=== PATIENT | male | born 1990 | race Native Hawaiian/Other Pacific Islander ===

== ENCOUNTER 2022-03-02 13:14 | Outpatient (REF) | payer OTHER, SELFPAY ==
[2022-03-02 18:32] LABS: Fentanyl, urine POSITIVE (Not Detect)
== END 2022-03-02 13:15 | disposition home or self-care (01) ==
LOC: HO.LNP 13:14
PROVIDERS: Visit Provider Internal Medicine
DX: F11.90 Opioid use, unspecified, uncomplicated (principal); Z51.81 Encounter for therapeutic drug level monitoring
CPT/HCPCS: 80305; 80307

== ENCOUNTER 2023-01-25 08:35 | Outpatient (REF) | payer OTHER, SELFPAY ==
[2023-01-25 08:48] LABS: MANUAL DIFF FLAG NO
[2023-01-25 09:06] LABS: Basophils Percent Auto 0.3 % (0-2); Eosinophils Absolute Auto 0.5 X10*3/uL (0.0-0.4); Eosinophils Percent Auto 6.9 % (0-4); Hematocrit 40.8 % (42.0-52.0); Hemoglobin 13.6 g/dl (14.0-18.0); Imm Gran Abs Auto 0.05 X10*3/uL (0.00-0.03); Imm Gran Pct Auto 0.7 % (0.0-0.4); Lymphocytes Absolute Auto 2.2 X10*3/uL (1.2-4.9); Lymphocytes Percent Auto 31.1 % (20-40); Mean Corpuscular HGB Conc 33.3 g/dl (31.0-36.0); Mean Corpuscular Hemoglobin 27.3 pg (27.0-33.0); Mean Corpuscular Volume 81.9 fL (80.0-98.0); Mean Platelet Volume 9.5 fL (9.4-12.4); Monocytes Absolute Auto 0.6 X10*3/uL (0.1-1.2); Monocytes Percent Auto 8.6 % (2-11); Neutrophils Absolute Auto 3.7 x10*3/uL (2.0-8.3); Neutrophils Percent Auto 52.4 % (45-73); Platelet Count 254 X10*3/uL (160-400); Red Blood Count 4.98 X10*6/uL (4.60-5.80); Red Cell Distribution Width 12.2 % (11.0-16.0)
[2023-01-25 09:48] LABS: Alanine Aminotransferase 85 U/L (0-40); Alkaline Phosphatase 81 U/L (39-117); Anion Gap 13 (12-20); Aspartate Amino Transferase 31 U/L (5-37); Bilirubin Total 0.4 mg/dL (0.0-1.0); Blood Urea Nitrogen 14 mg/dL (9-16); Calcium 9.6 mg/dL (8.4-10.2); Carbon Dioxide 28 mmol/L (22-29); Chloride 102 mmol/L (96-108); Cholesterol 210 mg/dL; Estimated Glomerular Filt Rate > 60; Glucose Fasting 95 mg/dL (60-99); HDL Cholesterol 44 mg/dL; LDL Cholesterol Calculated 104 mg/dl; Potassium 4.7 mmol/L (3.3-5.1); Sodium 138 mmol/L (135-145); Total Protein 7.2 g/dL (6.5-8.0); Triglycerides 313 mg/dL
[2023-01-25 10:06] LABS: Thyroid Stimulating Hormone 2.17 uIU/mL (0.32-4.0)
[2023-01-31 13:57] LABS: Testosterone, Free 22.7 pg/mL (35.0-155.0); Testosterone, Total 159 ng/dL (250-1100)
== END 2023-01-25 08:36 | disposition home or self-care (01) ==
LOC: HO.LAB 08:35
PROVIDERS: PCP Internal Medicine; Visit Provider Internal Medicine
DX: E03.9 Hypothyroidism, unspecified (principal); N28.9 Disorder of kidney and ureter, unspecified; R68.82 Decreased libido; E78.5 Hyperlipidemia, unspecified; D64.9 Anemia, unspecified
CPT/HCPCS: 36415; 80053; 80061; 84402; 84403; 84443; 85025

== ENCOUNTER 2023-12-23 07:37 | Emergency (ER) | payer OTHER, SELFPAY ==
--- NOTE | 2023-12-23 | ECG_ITS ---
Test Reason : diff breathing Blood Pressure : / mmHG Vent. Rate : 073 BPM Atrial Rate : 073 BPM P-R Int : 178 ms QRS Dur : 096 ms QT Int : 406 ms P-R-T Axes : 078 085 052 degrees QTc Int : 447 ms Normal sinus rhythm Possible Left atrial enlargement Borderline ECG When compared with ECG of 23-FEB-2006 23:09, left atrial enlargement noted Referred By: Generic ED Physician Electronically Signed By:KIKI SAXENA
--- NOTE | ~2023-12-23 | XR_ITS ---
EXAMINATION: XR CHEST CLINICAL INFORMATION: Shortness of breath and cough COMPARISON: CT chest 04/06/2015 TECHNIQUE: 2 views of the chest were obtained. FINDINGS: No significant abnormality is noted involving the heart, lungs, mediastinum, bony thorax or soft tissues. XR/XR chest 2V IMPRESSION: Unremarkable examination.
[2023-12-23 07:39] VITALS: BP 133/88; PULSE 77; RESP 22; TEMP 36.6; O2SAT 95; BMI 34.6
[2023-12-23 08:24] LABS: MANUAL DIFF FLAG NO
[2023-12-23 08:29] LABS: Basophils Percent Auto 0.2 % (0-2); Eosinophils Absolute Auto 1.2 X10*3/uL (0.0-0.4); Eosinophils Percent Auto 10.3 % (0-4); Imm Gran Abs Auto 0.05 X10*3/uL (0.00-0.03); Imm Gran Pct Auto 0.4 % (0.0-0.4); Lymphocytes Absolute Auto 2.3 X10*3/uL (1.2-4.9); Mean Corpuscular HGB Conc 32.7 g/dl (31.0-36.0); Mean Corpuscular Hemoglobin 26.6 pg (27.0-33.0); Mean Corpuscular Volume 81.4 fL (80.0-98.0); Mean Platelet Volume 10.2 fL (9.4-12.4); Monocytes Absolute Auto 0.8 X10*3/uL (0.1-1.2); Monocytes Percent Auto 6.5 % (2-11); Neutrophils Absolute Auto 7.5 x10*3/uL (2.0-8.3); Neutrophils Percent Auto 63.6 % (45-73); Platelet Count 258 X10*3/uL (160-400); Red Blood Count 6.39 X10*6/uL (4.60-5.80); Red Cell Distribution Width 15.3 % (11.0-16.0); White Blood Count 11.8 X10*3/uL (4.8-10.8)
--- NOTE | 2023-12-23 08:33 | ED_ITS ---
HPI - URI/Sore Throat General Chief Complaint: Upper Respiratory Symptoms Stated Complaint: diff breathing cough Time Seen by Provider: 12/23/23 08:23 Source: patient Mode of arrival: ambulatory Limitations: no limitations History of Present Illness HPI Narrative: 33 y/o male presenting to the ED for evaluation of shortness of breath for 1 day and productive cough for 1 week. 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 After installing dryer, he felt extremely short of breath, wheezy, and able to complete a sentence due to inability to catch his breath. Denies history of asthma. He had a panic attack last night because he was unable to breathe fully. After finishing his shift this morning he came to the ED. Denies any fevers, abdominal pain, nausea, vomiting, diarrhea. Denies pain with inspiration. Smoker: reports frequent vaping Sick contacts: 2 children recently diagnosed with strep throat. MD elicited complaint: cough and sore throat Onset (ago): day(s) Consistency: constant Severity: severe Able to tolerate fluids by mouth: Yes Exacerbating factors: exertion and speaking Relieving factors: rest Context: sick contacts Associated symptoms: shortness of breath Treatments prior to arrival: none Related Data Previous Rx's ?Medication ?Instructions ?Recorded albuterol sulfate 90 mcg/actuation 1 inh inhalation QID PRN shortness 12/23/23 aerosol inhaler of breath or wheezing 5 days #6.7 grams inhalational spacing device (David #1 ea 12/23/23 Aerosol [place] Enhancer spacer) penicillin V potassium 500 mg 500 mg PO TID strep #10 tabs 12/23/23 tablet prednisone 20 mg tablet 50 mg (2.5 x 20 mg) PO DAILY 12/23/23 wheezing 5 days #13 tabs Allergies Allergy/AdvReac Type Severity Reaction Status Date / Time bee pollen [BEE STINGS] Allergy Unknown SWELLING Verified 12/23/23 07:41 Review of Systems 2 Review of Systems: Yes all other systems are reviewed and are negative [facility] Social History Social History Housing: House Patient Tobacco Use Status: Tobacco use Unknown e-Cigarette/Vaping Use: Currently Using Second Hand Smoke Exposure: No Advance Directives: No Advance Directives Information Provided: Yes service: No Current occupational status: employed Cognitive needs: No Hearing needs: No Vision needs: No Physical Exam 2 Vital Signs: Vital Signs: Last Vital Signs Temp 98.1 F 12/23/23 11:56 Pulse 94 12/23/23 11:56 Resp 20 12/23/23 11:56 BP 132/92 H 12/23/23 11:56 Pulse Ox 94 12/23/23 11:56 O2 Del Method Room Air 12/23/23 11:56 BMI result Body Mass Index 34.6 Appearance: Alert. Oriented X3. No acute distress. ENT: erythematous oropharynx with mucus. No tonsillar swelling or exudate. Neck: Normal inspection. Neck supple. CVS: Normal heart rate and rhythm. Pulses normal. Respiratory: Unable to speak in complete sentence. Diffuse inspiratory and expiratory wheezing. Equal breath sounds. Abdomen: Soft and nontender. Skin: Skin warm and dry. Normal skin color. Normal skin turgor. No rashes. Extremities: No lower extremity edema. No joint swelling. Neuro/psych: Oriented X 3. Nonfocal Course Reevaluation(s) Reevaluation #1: Patient reports that he is feeling improved, able to speak in complete sentences. Reports improvement from initial SOB 810 to now 10. Diffuse wheezing on inspiration and expiration still present diffusely. Time: 11:19 Medications Administered Discontinued Medications Generic Name Dose Route Start Last Admin Trade Name Freq PRN Reason Stop Dose Admin Albuterol Sulfate 2.5 mg/ 0 mg 12/23/23 08:49 12/23/23 08:53 Albuterol/Ipratropium 3 ml INHALE 12/23/23 08:50 5 dose ONCE ONE Administration Prednisone 50 mg 12/23/23 08:33 12/23/23 08:54 Prednisone 10 Mg Tablet PO 12/23/23 08:34 50 mg ONCE ONE Administration Medical Decision Making Medical Decision Making MDM Narrative: 33 y/o male presenting to the ED for evaluation of shortness of breath for 1 day and productive cough for 1 week. On exam, he is unable to speak in complete sentences and has diffuse inspiratory and expiratory wheezing on auscultation. Ordered CBC and BMP, unremarkable. Viral panel is negative. Group A strep swab positive. Patient's presentation most likely due to streptococcal pharyngitis. Administered duoneb and PO prednisone which patient reports mild relief. On exam, patient is still diffusely wheezing, both on inspiration and expiration. Will repeat with second duoneb. Patient reports frequent vaping, respiratory symptoms are likely exacerbated due to this. After 2nd neb patient was feeling much better. aeration improved although continued to be slightly wheezy. saturating well. he feels well enough for discharge - will send home with prednisone, albuterol neb, abx for strep given strict return precautions. Differential Diagnosis Differential Diagnoses: The differential diagnosis associated with the presentation includes streptococus pharyngitis, pneumonia, viral URI, COVID, flu, bronchitis, pneumothorax, acute asthma exacerbation Admission/Observation Consideration of admission/observation: Escalation of care including admission/observation considered required multiple nebs but overall improved Lab Data MDM Lab Attestation statement: I reviewed the patient's lab results. Elevated WBC likely due to infection with strep pyogenes 12/23/23 08:11 12/23/23 08:11 Labs: Lab Results 12/23/23 Range/Units 08:11 WBC 11.8 H (4.8-10.8) X10*3/uL RBC 6.39 H D (4.60-5.80) X10*6/uL Hgb 17.0 D (14.0-18.0) g/dl Hct 52.0 D (42.0-52.0) % MCV 81.4 (80.0-98.0) fL MCH 26.6 L (27.0-33.0) pg MCHC 32.7 (31.0-36.0) g/dl RDW 15.3 (11.0-16.0) % Plt Count 258 (160-400) X10*3/uL MPV 10.2 (9.4-12.4) fL Immature Gran % (Auto) 0.4 (0.0-0.4) % Neut % (Auto) 63.6 (45-73) % Lymph % (Auto) 19.0 L (20-40) % [facility] % (Auto) 6.5 (2-11) % Eos % (Auto) 10.3 H (0-4) % Baso % (Auto) 0.2 (0-2) % Lymph # (Auto) 2.3 (1.2-4.9) X10*3/uL [facility] # (Auto) 0.8 (0.1-1.2) X10*3/uL Eos # (Auto) 1.2 H (0.0-0.4) X10*3/uL Baso # (Auto) 0.0 (0.0-0.2) X10*3/uL Abs Immat Gran (auto) 0.05 H (0.00-0.03) X10*3/uL Absolute Neuts (auto) 7.5 (2.0-8.3) x10*3/uL Absolute Nucleated RBC 0.000 (0.0-0.012) X10*3/uL Nucleated RBC % (auto) 0.0 (0.0-0.2) /100WBC Sodium 139 (135-145) mmol/L Potassium 4.4 (3.3-5.1) mmol/L Chloride 103 (96-108) mmol/L Carbon Dioxide 30 H (22-29) mmol/L Anion Gap 10 L (12-20) BUN 12 (9-16) mg/dL Creatinine 0.94 (0.5-1.4) mg/dL Estim Creat Clear Calc 145.2 Estimated GFR > 60 Random Glucose 105 (60-115) mg/dL Calcium 9.6 (8.4-10.2) mg/dL Magnesium 1.8 (1.6-2.6) mg/dL Total Bilirubin 0.9 (0.0-1.0) mg/dL AST 33 (5-37) U/L ALT 64 H (0-40) U/L Alkaline Phosphatase 81 (39-117) U/L Total Protein 8.1 H (6.5-8.0) g/dL Albumin 4.4 (3.5-5.0) g/dL Influenza Type A (PCR) NEGATIVE (Negative) Influenza Type B (PCR) NEGATIVE (Negative) RSV RNA Qual (PCR) NEGATIVE (Negative) SARS-CoV-2 RNA (RT-PCR) NEGATIVE (Negative) S. pyogenes GrpA ED Positive A (Negative) Independent Interpretation I performed an independent interpretation of an: EKG and Plain X-Ray Interpretation: ECG: normal sinus rhythm with ventricular rate of 73 bpm, with possible left atrial enlargement. No ST elevations or depressions. X-RAY: unremarkable with no infiltrates, opacities, or significant abnormalities Radiology Impression Discussion of test interpretation with radiology: I have reviewed the radiologist's reading. Radiologist Impression: EXAMINATION: XR CHEST CLINICAL INFORMATION: Shortness of breath and cough COMPARISON: CT chest 04/06/2015 TECHNIQUE: 2 views of the chest were obtained. FINDINGS: No significant abnormality is noted involving the heart, lungs, mediastinum, bony thorax or soft tissues. XR/XR chest 2V IMPRESSION: Unremarkable examination. External Record Review External record reviewed: Prior outpatient labs and Prior outpatient radiology Prescription Management I considered prescription management with: Antibiotic Chronic Conditions Patient?s care impacted by: Other (vaping) Critical Care Time Critical Care Time Critical Care Time: Yes Total Critical Care Time: 48 Attestation: I have personally provided critical care time exclusive of time spent on separately billable procedures. Time includes review of lab data, radiology results, discussion with consultants, and monitoring for potential decompensation. Intervention performed as documented. Discharge Plan Discharge Clinical Impression: Strep pharyngitis, Bronchitis Patient Disposition: Home, Self-Care Instructions: Strep Throat (DC), Acute Bronchitis (ED) Additional Instructions: If you develop new or worsening symptoms call 911 or come back to the ER for further evaluation. Prescriptions: New penicillin V potassium 500 mg tablet 500 mg PO TID Qty: 10 0RF prednisone 20 mg tablet 50 mg PO DAILY 5 Days Qty: 13 0RF albuterol sulfate 90 mcg/actuation HFA aerosol inhaler 1 inh inhalation QID PRN (Reason: shortness of breath or wheezing) 5 Days Qty: 6.7 0RF (DME) David Aerosol [place] Enhancer Spacer See Rx Instructions .Route Qty: 1 0RF Rx Instructions: As directed Stand Alone Forms: Work/School Release Interventions: ED Discharge Assessment Last Done: 12/23/23 11:56 Discharge Date/Time: 12/23/23 11:57 Print Language: Andorran
[2023-12-23 08:46] LABS: Alanine Aminotransferase 64 U/L (0-40); Albumin Level 4.4 g/dL (3.5-5.0); Alkaline Phosphatase 81 U/L (39-117); Anion Gap 10 (12-20); Aspartate Amino Transferase 33 U/L (5-37); Bilirubin Total 0.9 mg/dL (0.0-1.0); Blood Urea Nitrogen 12 mg/dL (9-16); Calcium 9.6 mg/dL (8.4-10.2); Carbon Dioxide 30 mmol/L (22-29); Chloride 103 mmol/L (96-108); Creatinine Clr Calc Pharmacy 145.2; Estimated Glomerular Filt Rate > 60; Glucose Random 105 mg/dL (60-115); Magnesium 1.8 mg/dL (1.6-2.6); Potassium 4.4 mmol/L (3.3-5.1); Sodium 139 mmol/L (135-145); Total Protein 8.1 g/dL (6.5-8.0)
[2023-12-23] MEDS: Albuterol Sulfate 2.5 MG, Albuterol/Iprat 2.5/0.5MG 3 ML 3 ML INHALE (08:53)
[2023-12-23] MEDS: predniSONE 10 MG TABLET 50 MG PO (08:54)
[2023-12-23 08:56] VITALS: PULSE 75; RESP 20; O2SAT 96
[2023-12-23 08:58] LABS: IDNOW Serial# 08D9AD1C
[2023-12-23 08:59] LABS: Strep A Nucleic Acid Positive (Negative)
[2023-12-23 09:29] LABS: Influenza A PCR NEGATIVE (Negative); Influenza B PCR NEGATIVE (Negative); Resp Syncy Virus RNA Qual PCR NEGATIVE (Negative); SARS COV2 PCR INHOUSE NEGATIVE (Negative)
[2023-12-23 11:22] VITALS: BP 132/92; PULSE 94; RESP 20; TEMP 36.7; O2SAT 94
[2023-12-23 11:56] VITALS: BP 132/92; PULSE 94; RESP 20; TEMP 36.7; O2SAT 94
== END 2023-12-23 11:57 | disposition home or self-care (01) ==
PROVIDERS: Emergency Provider Emergency Medicine; PCP Internal Medicine
DX: J02.0 Streptococcal pharyngitis (principal); J40 Bronchitis, not specified as acute or chronic
CPT/HCPCS: 0241U; 36415; 71046; 80053; 83735; 85025; 87651; 93005; 94640; 99284

== ENCOUNTER → 2023-12-23 08:01 | Outpatient (BNV) | payer OTHER, SELFPAY | PROVIDERS: Emergency Provider Emergency Medicine; PCP Internal Medicine; Visit Provider Internal Medicine | DX: R06.02 Shortness of breath (principal) | CPT/HCPCS: 93010 ==

== ENCOUNTER 2024-11-13 10:18 | Outpatient (AMB) | payer OTHER, SELFPAY ==
--- NOTE | 2024-11-13 10:26 | A.OFFPC_ITS ---
Vital Signs 11/13/24 10:28 Height 5 ft 11 in Weight 257 lb 4 oz BMI 35.9 BP 120/62 Blood Pressure Location Lt brachial Position Sitting Pulse 70 Pulse Source Pulse Oximeter Temp 97.7 F Temp Source Temporal Artery Scan Pulse Oximetry (%) 96 Oxygen Delivery Method Room Air Intake Visit Reasons: Knee Arthritis Intake Note: Patient is here to follow up on left Knee Arthritis. Manager Corporate Responsibility Required: No Surface Plate Finisher: Not Required per policy Accompanied by: Self / Same As Patient Allergies bee pollen [BEE STINGS] Allergy (Unknown, Verified 11/13/24 10:27) SWELLING Tobacco use date assessed: 11/13/24 Dental Screening Dental Screen Date: 11/13/24 Did you have a dental visit in the last 12 months?: No Did you have a dental problem in the last 6 months where you did not have access to dental care?: No Was dental information given to patient?: Patient has dentist HPI Knee Arthritis HPI Details has internal derangement left knee and will be having surgery next month; needs oow note for a week [facility] Surgical History (Updated 11/13/24 @ 10:35 by DURGA Wagner) History of wisdom tooth extraction History of left knee surgery Social History (Updated 11/13/24 @ 10:26 by DURGA Wagner) Housing: House Alcohol intake: never Patient Tobacco Use Status: Never used Tobacco e-Cigarette/Vaping Use: Currently Using Second Hand Smoke Exposure: No service: No Current occupational status: employed Cognitive needs: No Hearing needs: No Vision needs: No Questionnaire PHQ-9 Over the last 2 weeks, how often have you been bothered by any of the following problems? 1. Little interest or pleasure in doing things: not at all 2. Feeling down, depressed, or hopeless: not at all 3. Trouble falling or staying asleep, or sleeping too much: not at all 4. Feeling tired or having little energy: not at all 5. Poor appetite or overeating: not at all 6. Feeling bad about yourself - or that you are a failure or have let yourself or your family down: not at all 7. Trouble concentrating on things, such as reading the newspaper or watching television: not at all 8. Moving or speaking so slowly that other people could have noticed. Or the opposite - being so fidgety or restless that you have been moving around a lot more than usual: not at all 9. Thoughts that you would be better off or of hurting yourself in some way: not at all Total score: 0 Depression Screening Interpretation: Negative Depression Screening Done: Yes Source: Developed by Drs. Lewis Velasquez, Esther Resendiz, Teodoro Nick and colleagues, with an educational robert from [employer]. Thrive Questionnaire Date Thrive assessed: 11/13/24 I am a: Patient What is your living situation today?: I have a steady place to live Within the past 12 months, did the food you bought not last and you didn't have the money to get more?: Never true Within the past 12 months, did you worry whether your food would run out before you got money to buy more?: Never true Do you have trouble paying for medicines?: No Do you have trouble getting transportation to medical appointments?: No Do you have trouble paying your heating and electricity bill?: No Do you have trouble taking care of your child, family member or friend?: No Do you have trouble with day-to-day activities such as bathing, preparing meals, shopping, managing finances, etc.?: No Are you currently unemployed and looking for a job?: No Are you interested in more education?: No Please select the resources that you would like help with: None Currently or been in a relationship where the following occur: No concerns reported THRIVE Score: 0 AUDIT C Alcohol Use Questionnaire (AUDIT-C) 1. How often do you have a drink containing alcohol?: Never Total Score: 0 NIALL-7 AMB Questionnaire NIALL-7 Date NIALL - 7 assessed: 11/13/24 Feeling nervous, anxious, or on edge: 0 = Not at all Not being able to stop or control worryin = Not at all Worrying too much about different things: 0 = Not at all Trouble relaxin = Not at all Being so restless that it is hard to sit still: 0 = Not at all Becoming easily annoyed or irritable: 0 = Not at all Feeling afraid as if something awful might happen: 0 = Not at all Total NIALL-7 score (0-4 normal; 5-9 mild; 10-14 moderate; 15-21 severe): 0 Source: Developed by Drs. Lewis Velasquez, Esther Resendiz, Teodoro Nick and colleagues, with an educational robert from [employer]. Review of Systems Const Denies chills, Denies headache(s) and Denies weight loss ENT Denies headache(s) Card Denies chest pain, Denies syncope, Denies irregular heart rhythm and Denies dyspnea Resp Denies chest congestion, Denies cough and Denies dyspnea GI Denies abdominal pain, Denies change in stool character, Denies nausea and Denies vomiting Musc Denies deformity and Denies joint swelling Neuro Denies syncope and Denies headache(s) Physical exam (Primary Care) Vital Signs: Last Vital Signs Temp 97.7 F 11/13/24 10:28 Pulse 70 11/13/24 10:28 BP 120/62 11/13/24 10:28 Pulse Ox 96 11/13/24 10:28 Oxygen Delivery Method Room Air 11/13/24 10:28 BMI result Body Mass Index 35.9 Tobacco/Smoking Status: Tobacco use Status Tobacco use date assessed 11/13/24 11/13/24 10:36 Patient Tobacco Use Status Never used Tobacco 11/13/24 10:36 e-Cigarette/Vaping Use Currently Using 11/13/24 10:36 PHQ-9: PHQ-9 Score PHQ-9: Total score 0 11/13/24 10:36 Depression Screening Interpretation: Negative Thrive Assessment: Date of Thrive Assessment Date Thrive assessed 11/13/24 11/13/24 10:36 Currently or been in a relationship where the following occur: No concerns reported Const General: cooperative, comfortable, no acute distress and alert Neck Neck: Yes no lymphadenopathy Thyroid: Thyroid normal Resp Effort & Inspection: normal respiratory effort Auscultation: clear to auscultation bilaterally Percussion: percussion normal Cardio Jugular venous distension: no JVD Palpation: normal PMI Rate: regular rate Rhythm: regular rhythm Heart sounds: S1 normal heart sound present and S2 normal heart sound present GI Inspection: Yes normal to inspection Palpation (GI): No hepatosplenomegaly present Skin General skin exam: no rashes or lesions noted Extrem General: Yes no clubbing, cyanosis or edema Coding Level of Care Code Est Pt Level 3 (86173) Diagnoses Knee pain M25.569 Assessment & Plan Assessment & Plan (1) Knee pain: Code(s): M25.569 - Pain in unspecified knee Plan: as per ortho; oow not
[2024-11-13 10:28] VITALS: BP 120/62; PULSE 70; TEMP 36.5; O2SAT 96; BMI 35.9
--- OUTSIDE RECORDS SUMMARY | 2024-11-13 11:35 | XMS_ITS | Clinical Summary ---
Author Organization [employer] [facility] ity Address [address] [place] [address] Care Team Providers Care Officer Captain Name Role Phone Unavailable Primary Care Provider Unavailabl e Social History Tobacco Use Types Packs/Day Years Used Date Smoking Tobacco: Never Assessed Sex and Gender Information Value Date Recorded Sex Assigned at Not on file Legal Sex Male 2:26 PM EST Gender Identity Not on file Sexual Orientation Not on file Plan of Treatment Health Maintenance Due Date Last Done Comments DTaP,Tdap,and Td Vaccines (1 - Tdap) 2011 Hepatitis B Vaccines (1 of 3 - 19+ 3-dose series) 2011 COVID-19 Vaccine (2023-2 5 season) 2024 Influenza Vaccine (#1) 2024 HIB Vaccines Aged Out No longer eligi ble based on patient's age to complete this topic HPV Vaccines Aged Out No longer eligi ble based on patient's age to complete this topic Hepatitis A Vaccines Aged Out No long er eligible based on patient's age to complete this topic IPV Vaccines Aged Out No longer eligi ble based on patient's age to complete this topic MMR Vaccines Aged Out No longer eligi ble based on patient's age to complete this topic Meningococcal ACWY Vaccine Aged Out N o longer eligible based on patient's age to complete this topic Meningococcal B Vacine Aged Out No lo nger eligible based on patient's age to complete this topic Pneumococcal Vaccine: Pediat rics (0 to 5 Years) and At-Risk Patients (6 to 64 Years) Aged Out No longer eligible b ased on patient's age to complete this topic RSV Immunization Patients Un annie 20 months Aged Out No longer eligible b ased on patient's age to complete this topic Varicella Vaccines Aged Out No longer eligible based on patient's age to complete this topic
== END 2024-11-13 10:47 | disposition home or self-care (01) ==
PROVIDERS: PCP Internal Medicine; Visit Provider Internal Medicine
DX: M25.569 Pain in unspecified knee (principal)